=== PATIENT | female | born 1935 | race Caucasian/White ===

== ENCOUNTER 2021-07-04 13:31 | Day surgery (SDCO) | payer MEDICARE, OTHER ==
[~2021-07-04] VITALS: Ht 162.6 cm; Wt 72.3 kg
[~2021-07-04 13:31] MED LIST: ALDACTONE50 MG PO; ALLOPURINOL 30300 MG PO; AMLODIPINE BESYL5 MG PO; BUMETANIDE2 MG PO; COLESTIPOL HCL1 GM PO; ESCITALOPRAM OX10 MG PO; GABAPENTIN300 MG PO; LEVAQUIN750 MG PO; METFORMIN HCL500 M1 PO; METRONIDAZOLE500 MG PO; MYRBETRIQ50 MG PO; OMEPRAZOLE 20MG20 MG PO; ONDANSETRON ODT4 MG SL; ZOFRAN4 MG PO
[2021-07-04 15:41] LABS: BASOPHIL 0.3 % (0-2); EOSINOPHIL 1.8 % (0-7); HCT 41.7 % (37.0-47.0); HGB 13.8 g/dl (12.5-16.0); LYMPHOCYTE 11.9 % (15-48); MCH 32.5 pg (25.0-31.0); MCHC 33.1 g/dL (32.0-36.0); MCV 98.3 fL (78.0-100.0); MONOCYTE 6.2 % (0-12); MPV 10.7 fL (6.0-9.5); NEUTROPHIL 79.4 % (41-80); NRBC 0; PLT 143 K/uL (150-400); RBC 4.24 M/uL (4.20-5.40); RDW 14.2 % (11.5-14.0); WBC 7.3 K/uL (4.0-10.5)
[2021-07-04 15:53] LABS: BUN/CREAT RATIO (CALC) 22.5 RATIO; CREATININE 0.89 mg/dL (0.51-0.95); POTASSIUM 3.4 mmol/L (3.5-5.1)
[2021-07-04 15:59] LABS: BILIRUBIN NEGATIVE (NEGATIVE); BLOOD TRACE-INTACT Ery/uL (NEGATIVE); COLOR YELLOW (YELLOW); GLUCOSE (U) TRACE mg/dL (NORMAL); LEUKOCYTES 3+ Leu/uL (NEGATIVE); NITRITE POSITIVE (NEGATIVE); PROTEIN NEGATIVE (NEGATIVE); SPECIFIC GRAVITY <=1.005 (1.001-1.030)
[2021-07-04 16:00] LABS: CLARITY CLOUDY (CLEAR)
[2021-07-04 16:08] LABS: BACTERIA 3+; URINARY RBC RARE; URINARY WBC 20-50
[2021-07-04 16:13] LABS: CORONAVIRUS 2019 SARS-COV-2 NEGATIVE (NEGATIVE); INFLUENZA A NAA NEGATIVE (NEGATIVE)
[2021-07-04] MEDS ORDERED: VITAMIN B-121000 MC1 SC (23:59)
[2021-07-05] MEDS ORDERED: NEURONTIN300 MG PO
[2021-07-05] MEDS ORDERED: PROBIOTIC1 EAC1 PO
[2021-07-05] MEDS ORDERED: UROCIT-K10 MEQ PO (00:02)
[2021-07-05] MEDS ORDERED: PRILOSEC20 MG PO (00:02)
[2021-07-05] MEDS ORDERED: COLESTID 1GM TAB1 GM PO (00:10)
[2021-07-05] MEDS ORDERED: ALLOPURINOL 30300 MG PO (00:10)
[2021-07-05] MEDS ORDERED: MAG-OXIDE 400M400 MG PO (00:11)
[2021-07-05] MEDS ORDERED: FARXIGA5 MG PO (00:15)
[2021-07-05] MEDS ORDERED: LEXAPRO 10MG TA10 MG PO (00:17)
[2021-07-05] MEDS ORDERED: MYRBETRIQ50 MG PO (00:24)
[2021-07-05 06:54] LABS: BASOPHIL 0.4 % (0-2); EOSINOPHIL 2.7 % (0-7); HCT 38.4 % (37.0-47.0); HGB 12.7 g/dl (12.5-16.0); MCH 32.8 pg (25.0-31.0); MCHC 33.1 g/dL (32.0-36.0); MCV 99.2 fL (78.0-100.0); MONOCYTE 9.6 % (0-12); MPV 10.7 fL (6.0-9.5); NEUTROPHIL 73.9 % (41-80); NRBC 0; PLT 124 K/uL (150-400); RBC 3.87 M/uL (4.20-5.40); RDW 14.1 % (11.5-14.0); WBC 4.8 K/uL (4.0-10.5)
[2021-07-05 07:25] LABS: ALBUMIN 3.1 g/dL (3.4-5.0); BILIRUBIN - TOTAL 0.8 mg/dL (0.2-1.0); BUN/CREAT RATIO (CALC) 19.1 RATIO; C-REACTIVE PROTEIN 0.5 mg/dL (<=0.90); CREATININE 0.89 mg/dL (0.51-0.95); GLOBULIN (CALCULATION) 2.5 g/dL; MAGNESIUM 1.6 mg/dL (1.8-2.4); PHOSPHORUS 3.2 mg/dL (2.6-4.7); POTASSIUM 3.5 mmol/L (3.5-5.1); TOTAL PROTEIN 5.6 g/dL (6.4-8.2)
[2021-07-05] MEDS ORDERED: ALLOPURINOL300 MG PO (11:54)
[2021-07-05] MEDS ORDERED: MACROBID100 MG PO (11:55)
[2021-07-06 07:01] LABS: BASOPHIL 0.5 % (0-2); EOSINOPHIL 3.2 % (0-7); HCT 38.3 % (37.0-47.0); HGB 12.2 g/dl (12.5-16.0); LYMPHOCYTE 13.5 % (15-48); MCH 32.1 pg (25.0-31.0); MCHC 31.9 g/dL (32.0-36.0); MCV 100.8 fL (78.0-100.0); MONOCYTE 8.9 % (0-12); MPV 10.9 fL (6.0-9.5); NEUTROPHIL 73.4 % (41-80); NRBC 0; PLT 107 K/uL (150-400); RDW 14.5 % (11.5-14.0); WBC 4.4 K/uL (4.0-10.5)
[2021-07-06 07:28] LABS: BUN/CREAT RATIO (CALC) 12.1 RATIO; C-REACTIVE PROTEIN 0.8 mg/dL (<=0.90); CREATININE 0.91 mg/dL (0.51-0.95); MAGNESIUM 1.4 mg/dL (1.8-2.4); POTASSIUM 4.1 mmol/L (3.5-5.1)
--- NOTE | 2021-07-06 12:29 | NUR ---
PER DR. NAVAS PT IS OBS APPROPRIATE.
[2021-07-07 10:44] LABS: BILIRUBIN - TOTAL 0.5 mg/dL (0.2-1.0); CREATININE 0.83 mg/dL (0.51-0.95); MAGNESIUM 1.8 mg/dL (1.8-2.4); POTASSIUM 4.1 mmol/L (3.5-5.1)
--- NOTE | 2021-07-07 16:02 | NUR ---
MET WITH PT. SHE STATED THAT SHE RESIDES WITH HER 89 YEAR OLD SPOUSE. THEY HAVE CAREGIVER SERVICES FROM [facility]. SHE IS ALSO CURRENT WITH CARETENDERS. SHE STATES THAT HER CHILDREN HELP WHEY THEY ARE AVILABLE. SHE STATED THAT THE CAREGIVERS ARE GOING ON VACATION THIS WEEK AND DO NOT HAVE A REPLACEMENT. WHEN ASKED ABOUT HER PLANS FOR WHEN THE CAREGIVERS ARE ON VACATION, PT STATED THAT SHE WOULD HAVE TO DO THE BEST SHE CAN AND GET HELP FROM HER CHILDREN. PT. STATES THAT SHE USES A ROLLATOR, BUT REQUIRES NO OTHER DME. ADVISED PT NURSE, ELISHA. ALSO, ADVISED CARETENDERS OF PT IMPENDING D/C.
[2021-07-07] MEDS ORDERED: METRONIDAZOLE500 MG PO (16:28)
[2021-07-07] MEDS ORDERED: LEVAQUIN500 MG PO (16:28)
[2021-07-08 08:11] LABS: HBSAG SCREEN Negative (Negative); HEP A AB, IGM Negative (Negative); HEP B CORE AB, IGM Negative (Negative); HEP C VIRUS AB <0.1 (0.0-0.9)
== END 2021-07-07 16:55 | disposition home health service (06) ==
LOC: FER 13:31 → FMS 19:50
PROVIDERS: Nurse Practitioner; Nurse Practitioner Family; ADMIT Internal Medicine
DX: K52.9 Noninfective gastroenteritis and colitis, unspecified (principal); N30.01 Acute cystitis with hematuria; E86.0 Dehydration; E87.1 Hypo-osmolality and hyponatremia; I10 Essential (primary) hypertension; E11.9 Type 2 diabetes mellitus without complications; K21.9 Gastro-esophageal reflux disease without esophagitis; M10.9 Gout, unspecified; I48.91 Unspecified atrial fibrillation; R74.01 Elevation of levels of liver transaminase levels; Z20.822 Contact with and (suspected) exposure to COVID-19; Z85.72 Personal history of non-Hodgkin lymphomas; Z85.05 Personal history of malignant neoplasm of liver; Z92.3 Personal history of irradiation; Z88.2 Allergy status to sulfonamides; Z88.5 Allergy status to narcotic agent; Z79.2 Long term (current) use of antibiotics; Z79.899 Other long term (current) drug therapy
CPT/HCPCS: 36415; 80048; 80053; 80074; 81001; 83605; 83735; 83880; 84100; 84145; 85025; 86140; 87045; 87046; 87088; 87449; 94010; C9113; G0378; J0696; J1642; J1956; J3475; J7030; Q9967; U0002

== ENCOUNTER 2021-11-09 16:12 | Emergency (ER) | payer MEDICARE, OTHER ==
[~2021-11-09 16:12] MED LIST changes: +ALLOPURINOL300 MG PO; +COLESTID 1GM TAB1 GM PO; +FARXIGA5 MG PO; +LEVAQUIN500 MG PO; +LEXAPRO 10MG TA10 MG PO; +MACROBID100 MG PO; +MAG-OXIDE 400M400 MG PO; +NEURONTIN300 MG PO; +PRILOSEC20 MG PO; +PROBIOTIC1 EAC1 PO; +UROCIT-K10 MEQ PO; +VITAMIN B-121000 MC1 SC
[2021-11-09 18:30] LABS: BASOPHIL 0.4 % (0-2); HCT 42.8 % (37.0-47.0); HGB 14.1 g/dl (12.5-16.0); LYMPHOCYTE 8.1 % (15-48); MCH 32.6 pg (25.0-31.0); MCHC 32.9 g/dL (32.0-36.0); MCV 98.8 fL (78.0-100.0); MONOCYTE 8.8 % (0-12); MPV 10.6 fL (6.0-9.5); NEUTROPHIL 79.4 % (41-80); NRBC 0; PLT 151 K/uL (150-400); RBC 4.33 M/uL (4.20-5.40); RDW 14.2 % (11.5-14.0); WBC 7.9 K/uL (4.0-10.5)
[2021-11-09 18:48] LABS: BUN/CREAT RATIO (CALC) 32.3 RATIO; CREATININE 0.93 mg/dL (0.51-0.95); POTASSIUM 4.3 mmol/L (3.5-5.1)
[2021-11-09] MEDS ORDERED: PERCOCET 7.5/321 TAB PO (20:22)
== END 2021-11-09 20:59 | disposition home or self-care (01) ==
LOC: FER 16:12
PROVIDERS: Nurse Practitioner Family
DX: M25.512 Pain in left shoulder (principal); Z79.899 Other long term (current) drug therapy; I50.9 Heart failure, unspecified; C22.8 Malignant neoplasm of liver, primary, unspecified as to type; C85.90 Non-Hodgkin lymphoma, unspecified, unspecified site
CPT/HCPCS: 36415; 71045; 80048; 84484; 85025; 93005; J1642; J1885

== ENCOUNTER 2022-01-21 15:31 | Inpatient (IN) | payer MEDICARE, OTHER ==
[~2022-01-21] VITALS: Ht 162.6 cm; Wt 72.8 kg
[~2022-01-21 15:31] MED LIST changes: +PERCOCET 7.5/321 TAB PO
[2022-01-21 16:35] LABS: BASOPHIL 0.4 % (0-2); EOSINOPHIL 1.7 % (0-7); HCT 37.1 % (37.0-47.0); HGB 12.1 g/dl (12.5-16.0); MCH 33.2 pg (25.0-31.0); MCHC 32.6 g/dL (32.0-36.0); MCV 101.6 fL (78.0-100.0); MONOCYTE 14.1 % (0-12); MPV 10.8 fL (6.0-9.5); NEUTROPHIL 72.2 % (41-80); NRBC 0; PLT 114 K/uL (150-400); RBC 3.65 M/uL (4.20-5.40); RDW 15.7 % (11.5-14.0); WBC 5.2 K/uL (4.0-10.5)
[2022-01-21 16:57] LABS: ALBUMIN 3.2 g/dL (3.4-5.0); BILIRUBIN - TOTAL 0.4 mg/dL (0.2-1.0); CREATININE 0.96 mg/dL (0.51-0.95); GLOBULIN (CALCULATION) 3.7 g/dL; POTASSIUM 4.1 mmol/L (3.5-5.1); TOTAL PROTEIN 6.9 g/dL (6.4-8.2)
[2022-01-21 17:15] LABS: INFLUENZA A NAA NEGATIVE (NEGATIVE)
[2022-01-21 17:18] LABS: CORONAVIRUS 2019 SARS-COV-2 POSITIVE (NEGATIVE)
[2022-01-21 18:10] LABS: LACTIC ACID 2.3 mmol/L (0.4-1.9)
[2022-01-21] MEDS ORDERED: ELIQUIS2.5 MG PO ×2 (21:21→21:24)
[2022-01-21] MEDS ORDERED: CIPRO250 MG PO (21:25)
[2022-01-21] MEDS ORDERED: LEXAPRO 10MG TA10 MG PO (21:26)
[2022-01-21] MEDS ORDERED: NEURONTIN300 MG PO (21:27)
[2022-01-21] MEDS ORDERED: CYCLOBENZAPRINE10 MG PO (21:28)
[2022-01-21] MEDS ORDERED: ARTHRITIS PAI42.5 GM TOP (21:29)
[2022-01-21] MEDS ORDERED: PRILOSEC20 MG PO (21:30)
[2022-01-21] MEDS ORDERED: ALLOPURINOL300 MG PO (21:31)
[2022-01-21] MEDS ORDERED: COLESTIPOL HCL1 GM PO (21:32)
[2022-01-21] MEDS ORDERED: K-TAB ER20 MEQ PO (21:34)
[2022-01-21] MEDS ORDERED: MAG-OXIDE 400M400 MG PO (21:35)
[2022-01-21] MEDS ORDERED: FLORANEX TABLE1 EACH PO (21:36)
[2022-01-21] MEDS ORDERED: FLAVOXATE HCL100 MG PO (21:38)
[2022-01-21] MEDS ORDERED: VITAMIN B-121000 MC1 IJ (21:42)
[2022-01-21] MEDS ORDERED: FLONASE ALLER15.8 ML (21:43)
[2022-01-21] MEDS ORDERED: MYRBETRIQ50 MG PO (21:44)
[2022-01-22 05:25] LABS: BASOPHIL 0 % (0-2); EOSINOPHIL 0 % (0-7); HCT 33.6 % (37.0-47.0); HGB 10.9 g/dl (12.5-16.0); LYMPHOCYTE 11.8 % (15-48); MCH 32.8 pg (25.0-31.0); MCHC 32.4 g/dL (32.0-36.0); MCV 101.2 fL (78.0-100.0); MONOCYTE 4.7 % (0-12); NEUTROPHIL 82.3 % (41-80); NRBC 0; PLT 99 K/uL (150-400); RBC 3.32 M/uL (4.20-5.40); RDW 15.2 % (11.5-14.0); RETICULOCYTE COUNT 2.3 % (1.0-2.0); WBC 2.6 K/uL (4.0-10.5)
[2022-01-22 06:20] LABS: BUN/CREAT RATIO (CALC) 31.6 RATIO; C-REACTIVE PROTEIN 0.9 mg/dL (<=0.90); CREATININE 0.79 mg/dL (0.51-0.95); POTASSIUM 4.6 mmol/L (3.5-5.1)
[2022-01-22 09:24] LABS: IRON % SATURATION 13.7 %SAT (20-50)
[2022-01-22 17:10] LABS: BILIRUBIN NEGATIVE (NEGATIVE); BLOOD NEGATIVE Ery/uL (NEGATIVE); CLARITY CLEAR (CLEAR); COLOR YELLOW (YELLOW); GLUCOSE (U) TRACE mg/dL (NORMAL); LEUKOCYTES NEGATIVE Leu/uL (NEGATIVE); NITRITE NEGATIVE (NEGATIVE); PROTEIN NEGATIVE (NEGATIVE); UROBILINOGEN 0.2 mg/dL (0.2-1.0)
[2022-01-23 06:28] LABS: BASOPHIL 0.2 % (0-2); EOSINOPHIL 0 % (0-7); HGB 11.2 g/dl (12.5-16.0); MCH 32.9 pg (25.0-31.0); MCHC 32.9 g/dL (32.0-36.0); MONOCYTE 16.5 % (0-12); MPV 10.8 fL (6.0-9.5); NEUTROPHIL 67.8 % (41-80); NRBC 0; PLT 114 K/uL (150-400); RDW 15.4 % (11.5-14.0); WBC 4.1 K/uL (4.0-10.5)
[2022-01-23 06:48] LABS: BUN/CREAT RATIO (CALC) 35.9 RATIO; CREATININE 0.78 mg/dL (0.51-0.95); POTASSIUM 4.3 mmol/L (3.5-5.1)
[2022-01-23] MEDS ORDERED: LOPRESSOR25 MG PO (09:52)
--- NOTE | 2022-01-23 10:48 | NUR ---
POC LOCKED WITH 10CC NS AND 3CC 100 UNIT HEPARIN, COVERED WITH STERILE DRESSING
--- NOTE | 2022-01-23 12:05 | NUR ---
01/23 Ms. Steele lives at home with her spouse. She has a rollator, cane, and s. chair. Ms. Steele has [employer] insurance which pays for caregivers. She has caregivers 5 days a week; 5 hours for 2 days and 7 hours for 3 days. A referral was made to [facility] for nursing and PT. Rachid Glynn, PT, was requested per pt request.
== END 2022-01-23 13:10 | disposition home or self-care (01) | DRG 177 ==
LOC: FER 15:31 → FMS 17:55 → FTCU 01-22 16:26
PROVIDERS: Emergency Medicine; Nurse Practitioner Acute Care; ADMIT Family Medicine
PROC: XW033E5 Introduction of Remdesivir Anti-infective into Peripheral Vein, Percutaneous Approach, New Technology Group 5 (ICD-10-PCS; principal; 2022-01-21)
PROC: 3E0333Z Introduction of Anti-inflammatory into Peripheral Vein, Percutaneous Approach (ICD-10-PCS; 2022-01-21)
PROC: 8E0ZXY6 Isolation (ICD-10-PCS; 2022-01-21)
DX: U07.1 COVID-19 (principal); J15.9 Unspecified bacterial pneumonia; J96.01 Acute respiratory failure with hypoxia; D61.818 Other pancytopenia; C22.9 Malignant neoplasm of liver, not specified as primary or secondary; C85.90 Non-Hodgkin lymphoma, unspecified, unspecified site; N39.0 Urinary tract infection, site not specified; E87.2 Acidosis; J98.11 Atelectasis; Z66 Do not resuscitate; D69.59 Other secondary thrombocytopenia; I48.0 Paroxysmal atrial fibrillation; T45.515A Adverse effect of anticoagulants, initial encounter; I25.10 Atherosclerotic heart disease of native coronary artery without angina pectoris; F32.A Depression, unspecified; K21.9 Gastro-esophageal reflux disease without esophagitis; E11.40 Type 2 diabetes mellitus with diabetic neuropathy, unspecified; E11.22 Type 2 diabetes mellitus with diabetic chronic kidney disease; I12.9 Hypertensive chronic kidney disease with stage 1 through stage 4 chronic kidney disease, or unspecified chronic kidney disease; J20.9 Acute bronchitis, unspecified; N18.2 Chronic kidney disease, stage 2 (mild); Z96.652 Presence of left artificial knee joint; M10.9 Gout, unspecified; D50.9 Iron deficiency anemia, unspecified; Z79.01 Long term (current) use of anticoagulants; Z95.0 Presence of cardiac pacemaker; Z85.3 Personal history of malignant neoplasm of breast; Z90.49 Acquired absence of other specified parts of digestive tract; Z90.710 Acquired absence of both cervix and uterus; Z83.3 Family history of diabetes mellitus; Z82.49 Family history of ischemic heart disease and other diseases of the circulatory system; Z79.899 Other long term (current) drug therapy
CPT/HCPCS: 36415; 36600; 71045; 71250; 80048; 80053; 81003; 82607; 82728; 82803; 82962; 83540; 83550; 83605; 83880; 84145; 84443; 84484; 85025; 86140; 87040; 87088; 93005; 94010; 94640; 94664; 94667; 94668; 94760; 97162; 97166; C9399; J0456; J0696; J1100; J1642; J3475; J7030; J7050; J8540; U0002